=== PATIENT | female | born 1965 | race Caucasian/White ===

== ENCOUNTER 2024-09-27 10:57 | Outpatient (CLI) | payer BC, SELFPAY ==
--- NOTE | 2024-09-27 11:05 | XR_ITS ---
FINAL REPORT CLINICAL HISTORY: RIGHT SHOULDER PAIN COMPARISON: None FINDINGS: LEFT SHOULDER 3 views of the left shoulder were obtained. There is no acute fracture or dislocation. Visualized joint spaces are normally aligned. Soft tissues are unremarkable. IMPRESSION: No acute bony abnormality. Reviewed, Interpreted and Dictated by Jean Carlos Booker MD Transcribed by Luda Smith Authenticated and [facility]
== END 2024-09-27 23:59 | disposition home or self-care (01) ==
LOC: RAD 11:01
PROVIDERS: PCP Family Medicine; Visit Provider Family Medicine
DX: M25.511 Pain in right shoulder (principal); S49.91XA Unspecified injury of right shoulder and upper arm, initial encounter
CPT/HCPCS: 73030

== ENCOUNTER 2025-06-26 15:18 | Outpatient (CLI) | payer BC, SELFPAY ==
--- OUTSIDE RECORDS SUMMARY | 2025-06-06 14:45 | XMS_ITS | Encounter Summary ---
Author Organization [facility] yste Address [address] [place] [address] Care Team Providers Care Transmitter Engineer In Charge Name Role Phone Juan Luis Earl MD Primary Care Provider [phone] Reason for Visit * Reason Comments Coronary artery disease involving [place] coronary artery of 1 yr f/u------- Encounter Details Date Type Department Care Team (Late st Contact Info) Description 06/06/2025 2:45 PM EDT Office Visit [facility] [address] [facility] [address] [place] [address] Mine Daily MD [address] [facility] [address] [place] [address] Coronary artery disease involving [place] coronary artery of [place] heart without angina pectoris (Primary Dx); Hyperlipidemia LDL goal <70; Primary hypertension Social History Tobacco Use Types Packs/Day Years Used Date Smoking Tobacco: Former Cigarettes 0.5 15 0 12/23/2001 - 12/23/2016 Passive Smoke Exposure: Past Smokeless Tobacco: Never Alcohol Use Standard Drinks/Week Comments Yes 1 (1 standard drink = 0.6 oz pur e alcohol) occas Comments No Sex and Gender Information Value Date Recorded Sex Assigned at Not on file Legal Sex Female 12:48 PM EDT Gender Identity Not on file Sexual Orientation Not on file documented as of this encounter Last Filed Vital Signs Vital Sign Reading Time Taken Comments Blood Pressure 122/88 06/06/2025 2:52 PM EDT Pulse 87 06/06/2025 2:52 PM EDT Temperature - - Respiratory Rate - - Oxygen Saturation 97% 06/06/2025 2:52 PM EDT Inhaled Oxygen Concentration - - Weight 95.3 kg (210 lb 3.2 oz) 06/06/2025 2:52 P M EDT Height 167.6 cm (5' 6 ) 06/06/2025 2:52 PM EDT Body Mass Index 33.93 06/06/2025 2:52 PM EDT documented in this encounter Progress Notes * Mine Daily MD - 06/06/2025 2:45 PM EDTAssociated Order(s): ECG 12 Lead Post-Procedure Diagnose(s): Hyperlipidemia LDL goal <70; Coronary artery disease involving [place] coronary artery of [place] heart without angina pectoris [facility] Patient ID: Rosa Maria George is a 60 y.o. female. : 1965 Contact: Encounter date: 06/06/2025 PCP: Juan Luis Earl MD Chief complaint: Chief Complaint Patient presents with Coronary artery disease involving [place] coronary artery of 1 yr f/u------- Problem List: Coronary artery disease: NSTEMI/LHC, 12/08/2014, PWH: 99% mid RCA thrombus s/p 3.0 x 28 mm Xience CEFERINO post dilated with a 3.5 mm diameter balloon. EF 45-50%. Echo, 01/23/2015: EF 50-55% with minimal inferior hypokinesis. Dyslipidemia. History of tobacco abuse, cessation in November 2016. Mild obesity. History of nephrolithiasis. History of diverticulosis. Surgical history: Cholecystectomy. Total abdominal hysterectomy. section. Lithotripsy. Umbilical hernia repair No Known Allergies Current Medications: Current Outpatient Medications: aspirin 81 MG EC tablet, Take 1 tablet by mouth Every Night., Disp: , Rfl: atorvastatin (LIPITOR) 80 MG tablet, Take 1 tablet by mouth Daily., Disp: 90 tablet, Rfl: 3 carvedilol (COREG) 3.125 MG tablet, Take 1 tablet by mouth Daily., Disp: 90 tablet, Rfl: 3 nitroglycerin (NITROSTAT) 0.4 MG SL tablet, Place 1 tablet under the tongue Every 5 (Five) Minutes As Needed for Chest Pain. Take no more than 3 doses in 15 minutes., Disp: 25 tablet, Rfl: 3 HPI Rosa Maria George is a 60 y.o. female who presents today for a follow up of CAD and cardiac risk factors. Since last visit, patient has been doing well overall from a cardiovascular standpoint. Shehas started swimming to stay physically active. Patient denies chest pain, shortness of breath, orthopnea, palpitations, dizziness, and syncope. The following portions of the patient's history were reviewed and updated as appropriate: allergies, current medications and problem list. Pertinent positives as listed in the HPI. All other systems reviewed are negative. Vitals: 06/06/25 1452 BP: 122/88 BP Location: Left arm Patient Position: Sitting Cuff Size: Adult Pulse: 87 SpO2: 97% Weight: 95.3 kg (210 lb 3.2 oz) Height: 167.6 cm (66 ) Physical Exam: General: Alert and oriented. Neck: Jugular venous pressure is within normal limits. Carotids have normal upstrokes without bruits. Cardiovascular: Heart has a nondisplaced focal PMI. Regular rate and rhythm. No murmur, gallop or rub. Lungs: Clear, no rales or wheezes. Equal expansion is noted. Extremities: Show no edema. Skin: Warm and dry. Neurologic: Nonfocal. Diagnostic Data (reviewed with patient): No recent laboratory studies available for review today. Advance Care Planning ACP discussion was held with the patient during this visit. Patient does not have an advance directive, declines further assistance. ECG 12 Lead Date/Time: 06/06/2025 3:04 PM Performed by: Mine Daily MD Authorized by: Mine Daily MD Comparison: compared with previous ECG from 05/31/2024 Rhythm: sinus rhythm BPM: 87 Clinical impression: abnormal EKG Comments: Inferior infarct, age undetermined. Assessment: ICD-10-CM ICD-9-CM 1. Coronary artery disease involving [place] coronary artery of [place] heart without angina [id number] 414.01 2. Hyperlipidemia LDL goal <70 E78.5 272.4 3. Primary hypertension I10 401.9 Plan: Continue swimming for exercise CMP and FLP ordered to be done today. Continue on aspirin 81 mg for antiplatelet therapy. Continue on atorvastatin 80 mg daily for hyperlipidemia. Continue on carvedilol 3.125 mg QD for hypertension. Continue all other current medications. F/up in 12 months, sooner if needed. Scribed for Mine Daily MD by Janine Sherman. 06/06/2025 15:01 EDT I Mine Daily MD personally performed the services described in this documentation as scribed by the above individual in my presence, and it is both accurate and complete. Mine Daily MD, FACC documented in this encounter Plan of Treatment Upcoming Encounters Date Type Department Care Team (Late st Contact Info) Description 07/10/2026 4:00 PM EDT Office Visit [facility] [address] [facility] [address] [place] [address] Mine Daily MD [address] [facility] [address] [place] [address] documented as of this encounter Procedures Procedure Name Priority Date/Time Associated Diagnosis Comments LIPID PANEL Routine 06/06/2025 3:19 PM EDT Coronary artery disease involving [place] coronary artery of [place] heart without angina pectoris Hyperlipidemia LDL goal <70 COMPREHENSIVE METABOLIC PANEL Routine 06/06/2025 3:19 PM EDT Coronary artery disease involving [place] coronary artery of [place] heart without angina pectoris Hyperlipidemia LDL goal <70 ECG 12-LEAD Routine 06/06/2025 Coronary artery disease involving [place] coronary artery of [place] heart without angina pectoris Hyperlipidemia LDL goal <70 documented in this encounter Results * (ABNORMAL) Comprehensive Metabolic Panel (06/06/2025 3:19 PM EDT) Glucose 137(H) 65 - 99 mg/dL 06/06/2025 11:49 PM EDT [facility] BUN 16.0 8.0 - 23.0 mg/dL 06/06/2025 11:49 PM [facility] Creatinine 0.80 0.57 - 1.00 mg/dL 06/06/2025 11:49 PM [facility] Sodium 141 136 - 145 mmol/L 06/06/2025 11:49 PM [facility] Potassium 4.6 3.5 - 5.2 mmol/L 06/06/2025 11:49 PM [facility] Chloride 106 98 - 107 mmol/L 06/06/2025 11:49 PM [facility] CO2 24.0 22.0 - 29.0 mmol/L 06/06/2025 11:49 PM [facility] Calcium 9.9 8.6 - 10.5 mg/dL 06/06/2025 11:49 PM [facility] Total Protein 7.5 6.0 - 8.5 g/dL 06/06/2025 11:49 PM [facility] Albumin 4.3 3.5 - 5.2 g/dL 06/06/2025 11:49 PM [facility] ALT (SGPT) 25 1 - 33 U/L 06/06/2025 11:49 PM [facility] AST (SGOT) 19 1 - 32 U/L 06/06/2025 11:49 PM [facility] Alkaline Phosphatase 92 39 - 117 U/L 06/06/2025 11:49 PM [facility] Total Bilirubin 0.4 0.0 - 1.2 mg/dL 06/06/2025 11:49 PM [facility] Globulin 3.2 gm/dL 06/06/2025 11:49 PM [facility] A/G Ratio 1.3 g/dL 06/06/2025 11:49 PM [facility] BUN/Creatinine Ratio 20.0 7.0 - 25.0 06/06/2025 11:49 PM [facility] Anion Gap 11.0 5.0 - 15.0 mmol/L 06/06/2025 11:49 PM EDT [facility] eGFR 83.9 >60.0 mL/min/1.7 3 06/06/2025 11:49 PM EDT [facility] Blood Venipuncture / Unknown 06/06/2025 3:19 PM EDT 06/06/2025 3:19 PM EDT Narrative [facility] - 06/06/2025 11:49 PM EDT GFR Categories in Chronic Kidney Disease (CKD) GFR Category GFR (mL/min/1.73) Interpretation G1 90 or greater Normal or high (1) G2 60-89 Mild decrease (1) G3a 45-59 Mild to moderate decrease G3b 30-44 Moderate to severe decrease G4 15-29 Severe decrease G5 14 or less Kidney failure (1)In the absence of evidence of kidney disease, neither GFR category G1 or G2 fulfill the criteria for CKD. eGFR calculation 2020 CKD-EPI creatinine equation, which does not include race as a factor Mine Daily MD LAB BLOOD ORDERABLES nal Result [facility]
[address] [place] [address], * Lipid Panel (06/06/2025 3:19 PM EDT) Total Cholesterol 141 0 - 200 mg/dL 06/06/2025 11:49 PM EDT [facility] Triglycerides 138 0 - 150 mg/dL 06/06/2025 11:49 PM EDT [facility] HDL Cholesterol 43 40 - 60 mg/dL 06/06/2025 11:49 PM EDT [facility] LDL Cholesterol 74 0 - 100 mg/dL 06/06/2025 11:49 PM EDT [facility] VLDL Cholesterol 24 5 - 40 mg/dL 06/06/2025 11:49 PM EDT [facility] LDL/HDL Ratio 1.64 06/06/2025 11:49 PM EDT [facility] Blood Venipuncture / Unknown 06/06/2025 3:19 PM EDT 06/06/2025 3:19 PM EDT Narrative [facility] - 06/06/2025 11:49 PM EDT Cholesterol Reference Ranges (U.S. Department of Health and Human Services ATP III Classifications) Desirable <200 mg/dL Borderline High 200-239 mg/dL High Risk >240 mg/dL Triglyceride Reference Ranges (U.S. Department of Health and Human Services ATP III Classifications) Normal <150 mg/dL Borderline High 150-199 mg/dL High 200-499 mg/dL Very High >500 mg/dL HDL Reference Ranges (U.S. Department of Health and Human Services ATP III Classifications) Low <40 mg/dl (major risk factor for CHD) High >60 mg/dl ('negative' risk factor for CHD) LDL Reference Ranges (U.S. Department of Health and Human Services ATP III Classifications) Optimal <100 mg/dL Near Optimal 100-129 mg/dL Borderline High 130-159 mg/dL High 160-189 mg/dL Very High >189 mg/dL LDL is calculated using the NIH LDL-C calculation. Mine Daily MD LAB BLOOD ORDERABLES Fi nal Result [facility]
[address] [place] [address], * ECG 12-LEAD (06/06/2025) Narrative 06/06/2025 Mine Daily MD 06/06/2025 3:24 PM ECG 12 Lead Date/Time: 06/06/2025 3:04 PM Performed by: Mine Daily MD Authorized by: Mine Daily MD Comparison: compared with previous ECG from 05/31/2024 Rhythm: sinus rhythm BPM: 87 Clinical impression: abnormal EKG Comments: Inferior infarct, age undetermined. Procedure Note Mine Daily MD - 06/06/2025 2:45 PM EDT [facility] Patient ID: Rosa Maria George is a 60 y.o. female. : 1965 Contact: Encounter date: 06/06/2025 PCP: Juan Luis Earl MD Chief complaint: Chief Complaint Patient presents with Coronary artery disease involving [place] coronary artery of 1 yr f/u------- Problem List: Coronary artery disease: NSTEMI/LHC, 12/08/2014, PWH: 99% mid RCA thrombus s/p 3.0 x 28 mm XienceDES post dilated with a 3.5 mm diameter balloon. EF 45-50%. Echo, 01/23/2015: EF 50-55% with minimal inferior hypokinesis. Dyslipidemia. History of tobacco abuse, cessation in November 2016. Mild obesity. History of nephrolithiasis. History of diverticulosis. Surgical history: Cholecystectomy. Total abdominal hysterectomy. section. Lithotripsy. Umbilical hernia repair No Known Allergies Current Medications: Current Outpatient Medications: aspirin 81 MG EC tablet, Take 1 tablet by mouth Every Night., Disp: ,Rfl: atorvastatin (LIPITOR) 80 MG tablet, Take 1 tablet by mouth Daily.,Disp: 90 tablet, Rfl: 3 carvedilol (COREG) 3.125 MG tablet, Take 1 tablet by mouth Daily., Disp:90 tablet, Rfl: 3 nitroglycerin (NITROSTAT) 0.4 MG SL tablet, Place 1 tablet under thetongue Every 5 (Five) Minutes As Needed for Chest Pain. Take no more than3 doses in 15 minutes., Disp: 25 tablet, Rfl: 3 HPI Rosa Maria George is a 60 y.o. female who presents today for a follow upof CAD and cardiac risk factors. Since last visit, patient has been doingwell overall from a cardiovascular standpoint. She has started swimming tostay physically active. Patient denies chest pain, shortness of breath,orthopnea, palpitations, dizziness, and syncope. The following portions of the patient's history were reviewed and updatedas appropriate: allergies, current medications and problem list. Pertinent positives as listed in the HPI. All other systems reviewed arenegative. Vitals: 06/06/25 1452 BP: 122/88 BP Location: Left arm Patient Position: Sitting Cuff Size: Adult Pulse: 87 SpO2: 97% Weight: 95.3 kg (210 lb 3.2 oz) Height: 167.6 cm (66 ) Physical Exam: General: Alert and oriented. Neck: Jugular venous pressure is within normal limits. Carotids havenormal upstrokes without bruits. Cardiovascular: Heart has a nondisplaced focal PMI. Regular rate andrhythm. No murmur, gallop or rub. Lungs: Clear, no rales or wheezes. Equal expansion is noted. Extremities: Show no edema. Skin: Warm and dry. Neurologic: Nonfocal. Diagnostic Data (reviewed with patient): No recent laboratory studies available for review today. Advance Care Planning ACP discussion was held with the patient during this visit. Patient doesnot have an advance directive, declines further assistance. ECG 12 Lead Date/Time: 06/06/2025 3:04 PM Performed by: Mine Daily MD Authorized by: Mine Daily MD Comparison: compared withprevious ECG from 05/31/2024 Rhythm: sinus rhythm BPM: 87 Clinical impression: abnormal EKG Comments: Inferior infarct, age undetermined. Assessment: ICD-10-CM ICD-9-CM 1. Coronary artery disease involving [place] coronary artery of [place] without angina pectoris I25.10 414.01 2. Hyperlipidemia LDL goal <70 E78.5 272.4 3. Primary hypertension I10 401.9 Plan: Continue swimming for exercise CMP and FLP ordered to be done today. Continue on aspirin 81 mg for antiplatelet therapy. Continue on atorvastatin 80 mg daily for hyperlipidemia. Continue on carvedilol 3.125 mg QD for hypertension. Continue all other current medications. F/up in 12 months, sooner if needed. Scribed for Mine Daily MD by Janine Sherman. 06/06/2025 15:01EDT I Mine Daily MD personally performed the services described inthis documentation as scribed by the above individual in my presence, andit is both accurate and complete. Mine Daily MD, [facility] Mine Daiyl MD ECG ORDERABLES Final R esult documented in this encounter Visit Diagnoses Diagnosis Coronary artery disease involving [place] coronary artery of [place] heart without angina pectoris- Primary Hyperlipidemia LDL goal <70 Other and unspecified hyperlipidemia Primary hypertension Unspecified essential hypertension documented in this encounter Additional Health Concerns Infection Onset Date Last Indicated Resolved Time CRE 09/27/2020 09/27/2020 documented as of this encounter Care Teams Transmitter Engineer In Charge Relationship Specialty Start Date End Date Juan Luis Earl MD [address] [place] [id number] PCP - General 06/20/15 documented as of this encounter
--- OUTSIDE RECORDS SUMMARY | 2025-06-06 15:25 | XMS_ITS | Encounter Summary ---
[facility] [address] [place] [address] Care Team Providers Care Purchasing Internship Name Role Phone Juan Luis Earl MD Primary Care Provider [phone] Encounter Details Date Type Department Care Team (Late st Contact Info) Description 06/06/2025 3:25 PM EDT Lab [facility] [address] [place] [id number] Social History Tobacco Use Types Packs/Day Years [...] on file documented as of this encounter Plan of Treatment Upcoming Encounters Date Type Department Care Team (Late st Contact Info) Description 07/10/2026 4:00 PM EDT Office Visit [facility] [address] [facility] [address] [place] [address] Mine Daily MD [address] [facility] [address] [place] [address] documented as of this encounter Visit Diagnoses Not on filedocumented in this encounter Additional Health Concerns Infection Onset Date Last Indicated Resolved Time CRE 09/27/2020 09/27/2020 documented as of this encounter Care Teams Purchasing Internship Relationship Specialty Start Date End Date Juan Luis Earl MD [address] [place] [address] PCP - General 06/20/15 documented as of this encounter
--- OUTSIDE RECORDS SUMMARY | 2025-06-26 15:21 | XMS_ITS | Clinical Summary ---
Author Organization [facility] Address [address] [place] [address] Phone Care Team Providers Care Scale Manager Name Role Phone Tiana Jj Unavailable Unavailable Conditions or Problems Problem Name Problem Code Onset Date Status Entry Date Provider Comment Standard Description Annotate Presence of ureteral stent 572459477 (SNOMED CT) 12/10 Active 12/11 Karla W Device in situ Calculus, kidney 87177443 (SNOMED CT) 12/10 Active 12/11 W Kidney stone Acute Pyelonephriti s 09142934 (SNOMED CT) 12/10 Active 12/11 Karla W Acute pyelonephritis ELEVATED LFT'S 854434406 (SNOMED CT) 12/10 Active 12/10 Karla W Liver function tests outside reference range Elevated LFT's 092236982 (SNOMED CT) 12/10 Inactive 12/10 Pranav Cruz MD. Liver function tests outside reference range Obstructive uropathy with infection N13.6 (ICD-10-CM ) 12/09 Active 12/09 Diana Patrick Pyonephrosis UTI N39.0 (ICD-10-CM ) 11/30 Active 11/30 W Urinary tract infection, site not specified E. coli infection B96.29 (ICD-10-CM ) 11/30 Active 11/30 W Other Escherichia coli [E. coli] as the cause of diseases classified elsewhere CRE 840170020 (SNOMED CT) 11/30 Active 11/30 Infection caused by antimicrobial resistant bacteria Medications Medication Instructions Start Date Stop Date Generic Name NDC Provider NITROGLYCERIN 0.4 MG SUBL 0.4 mg, Sublingual, Every 5 Minutes PRN, Take no more than 3 doses in 15 minutes. NITROGLYCERIN [id number] Jeane Angulo ADULT ASPIRIN REGIMEN 81 MG ORAL TABLET DELAYED RELEASE Take one by mouth daily ASPIRIN 24751884966 Jeane Angulo CARVEDILOL 3.125 MG TABS Take by mouth twice a day CARVEDILOL 35422695135 Jeane Angulo ATORVASTATIN CALCIUM 40 MG TABS Take one by mouth daily ATORVASTATIN CALCIUM 86397394011 Jeane Angulo MERREM 1 GM INTRAVENOUS SOLUTION RECONSTITUTED Merrem 1GM IV Q8hrs - OPAT MEROPENEM [id number] Chelsey Conway Medications Administered No information available. Allergies, Adverse Reactions, Alerts No information available. Results Date Name Value Unit Range Flag Description Office Visit: Rm 4 DIET SOUND ENGINEERING TECHNICIAN yes Dietary management education, guidance, and counseling (procedure) ORALTOBACUSE Never Tobacco smoking status SMOK STATUS Former smoker Tobacco smoking status Lab Report: CBC WITH AUTO DI FFERENTIAL ZZ-GE-unk 0.0 /100 WBC 0.0-0.2 GE use only - fo r [employer] import when terms are not otherwise specified IMMATUREGRAN 0.06 10*3/MM3 0.00-0.05 H Immature granulocytes [#/volume] in Blood BASO# 0.17 10*3/mm3 0.00-0.20 Basophils [#/vol ume] in Blood EOS ABSLT 1.07 10*3/uL 0.00-0.40 H Eosinophi ls [#/volume] in Blood MONOSCT AUTO 0.66 10*3/uL 0.10-0.90 Monocy etienne [#/volume] in Blood by Automated count LYMPHCT AUTO 2.31 10*3/mm3 0.70-3.10 Lymph ocytes [#/volume] in Blood by Automated count ABS NEUTROPH 8.79 10*3/uL 1.70-7.00 H Neutro phils [#/volume] in Blood IMM GRANU % 0.5 % 0.0-0.5 Immature granulocytes/100 leukocytes in Blood % EOS AUTO 8.2 % 0.3-6.2 H Eosinophil s/100 leukocytes in Blood by Automated count MONOCYTE % 5.1 % 5.0-12.0 Monocytes /100 leukocytes in Blood by Automated count LYMPHOCY BF 17.7 % 19.6-45.3 L lymphoc ytes as percent of body fluid leukocytes NEUTROP BF 67.2 % 42.7-76.0 Neutroph ils/100 leukocytes in Body fluid PLATELETS 329 10*3/mm3 140-450 Platelets [#/volume] in Blood by Automated count RDW_ 12.0 12.3-15.4 L RDW, no uni ts MCHC 32.0 G/DL 31.5-35.7 MCHC [Mass/ volume] by Automated count MCH 32.2 pg 26.6-33.0 MCH [Entiti c mass] by Automated count MCV 100.6 fL 79.0-97.0 H MCV [Entiti c volume] by Automated count HCT 46.9 % 34.0-46.6 H Hematocrit [Volume Fraction] of Blood by Automated count HGB 15.0 g/dL 12.0-15.9 Hemoglobin [Mass/volume] in Blood RBC 4.66 10*6/mm3 3.77-5.28 Erythrocyt es [#/volume] in Blood by Automated count WBC 13.06 10*3/mm3 3.40-10.8 0 H Leukocytes [#/volume] in Blood by Automated count Lab Report: SEDIMENTATION RA TE ESR 21 mm/h 0-30 Erythrocyte sedimentation rate by Westergren method Lab Report: COMPREHENSIVE GA TABOLIC PANEL ANIONGAP 7.0 mmol/L 5.0-15.0 anion gap, serum BUN/CREAT 20.3 7.0-25.0 Urea nitrogen/Creatinine [Mass Ratio] in Serum or Plasma GFRC 81 mL/min/1. 73m2 >60 Glomerular Filtration Rate Calculation BILI TOTAL 0.8 mg/dL 0.0-1.2 Bilirubin. total [Mass/volume] in Serum or Plasma ALK PHOS 99 U/L 39-117 Alkaline ita sphatase [Enzymatic activity/volume] in Blood SGOT (AST) 16 U/L 1-32 Aspartate aminotransferase [Enzymatic activity/volume] in Serum or Plasma SGPT (ALT) 22 U/L 1-33 Alanine aminotransferase [Enzymatic activity/volume] in Serum or Plasma ALBUMIN 4.00 g/dL 3.50-5.20 Albumin [Mass/volume] in Serum or Plasma PROTEIN, TOT 7.7 g/dL 6.0-8.5 Protein [Mass/volume] in Serum or Plasma CALCIUM 9.8 mg/dL 8.6-10.5 Calcium [Moles/volume] in Serum or Plasma CO2 31.0 mmol/L 22.0-29.0 H Carbon diox shan, total [Moles/volume] in Venous blood CHLORIDE 105 mmol/L 98-107 Chloride [Moles/volume] in Serum or Plasma POTASSIUM 4.8 mmol/L 3.5-5.2 Potassium [Moles/volume] in Serum or Plasma SODIUM 143 mmol/L 136-145 Sodium [Moles/volume] in Serum or Plasma CREATININE 0.74 mg/dL 0.57-1.00 Creatini ne [Mass/volume] in Serum or Plasma BUN 15 mg/dL 6-20 Urea nitrogen [Mass/volume] in Serum or Plasma GLUCOSE SER 98 mg/dL 65-99 Glucose [Mass/volume] in Serum or Plasma Lab Report: C-REACTIVE PROTE IN CRP 1.54 mg/dL 0.00-0.50 H C reactive protein [Mass/volume] in Serum or Plasma Clinical Lists Update: LOU MEDS REVIEW Done Documenta tion of current medications (procedure) Plan of Care Type Date Detail Pending order Continue IV anti biotics Pending order Weekly PICC Line Care Pending order PICC Line Insert ion Pending order Meropenem Pending order STAT Labs Patient education Meropenem%20(I njection)%20(Injectable) Patient education Meropenem%20(I njection)%20(Injectable) Patient education Meropenem%20(I njection)%20(Injectable) Patient education Meropenem%20(I njection)%20(Injectable) Procedures Code Procedure Name Date Entry Date CPT-ca Continue IV antibiotics 2019 CPT-wpc Weekly PICC Line Care 12/17 CPT-17441 PICC Line Insertion [id number] Meropenem CPT-sl STAT Labs Vital Signs Date Name Value Unit Description BMI (Body Mass Index) 29.05 kg/m2 Bod y Mass Index (Ratio) Body Temperature 98.0 [degF] temperat ure E&M BP Diastolic 60 mm[Hg] blood pressu re, diastolic BP Systolic 120 mm[Hg] blood pressur e, systolic Heart Rate 76 /min pulse rate Respiratory Rate 14 /min respirat ory rate E&M Weight Measured 180 [lb_av] weight E& M Weight Measured 180 [lb_av] weight E& M Height 66 [in_us] height E&M Immunizations No information available. Advance Directives Directive Description Start Date LIVING WILL ON FILE
--- OUTSIDE RECORDS SUMMARY | 2025-06-26 15:22 | XMS_ITS | Encounter Summary ---
Author Organization [facility] Address [address] [place] [address] Care Team Providers Care Party Host Name Role Phone Juan Luis Earl MD Primary Care Provider [phone] Encounter Details Date Type Department Care Team (Late st Contact Info) Description 06/09/2025 Results Follow-Up [facility] [address] [facility] [address] [address] [place] [address] Mine Daily MD [address] [facility] [address] [place] [address] Social History Tobacco Use Types Packs/Day Years [...] on file documented as of this encounter Miscellaneous Notes * Telephone Encounter - Veronica Odell RN - 06/11/2025 11:28 AM EDT Per [facility] - LDL down from 162 to 74. Goal < 55. Add Zetia. FLP/LFT 3 mo. Spoke with patient. She is instructed of above and verbalizes understanding. documented in this encounter Plan of Treatment Upcoming Encounters Date Type Department Care Team (Late st Contact Info) Description 07/10/2026 4:00 PM EDT Office Visit [facility] [address] [facility] [address] [place] [address] Mine Daily MD [address] [place] [address] Scheduled Orders Name Type Priority Associated Diagnoses Orde r Schedule Lipid Panel Lab Routine Coronary artery disease involving [place] coronary artery of [place] heart without angina pectoris Hyperlipidemia LDL goal <70 Expected: 09/10/2025 (Approximate), Expires: 09/11/2026 Hepatic Function Panel Lab Routine Coronary artery disease involving [place] coronary artery of [place] heart without angina pectoris Hyperlipidemia LDL goal <70 Expected: 09/10/2025 (Approximate), Expires: 09/11/2026 documented as of this encounter Visit Diagnoses Diagnosis Coronary artery disease involving [place] coronary artery of [place] heart without angina pectoris- Primary Hyperlipidemia LDL goal <70 Other and unspecified hyperlipidemia documented in this encounter Additional Health Concerns Infection Onset Date Last Indicated Resolved Time CRE 09/27/2020 09/27/2020 documented as of this encounter Care Teams Party Host Relationship Specialty Start Date End Date Juan Luis Earl MD [address] [place] [address] PCP - General 06/20/15 documented as of this encounter
--- OUTSIDE RECORDS SUMMARY | 2025-06-26 15:22 | XMS_ITS | Clinical Summary ---
Author Organization [facility] [email or web address] [facility] Address [address] [place] [address] Care Team Providers Care Fire Prevention Bureau Captain Name Role Phone Juan Luis Earl MD Primary Care Provider [phone] Allergies No known active allergies Medications aspirin 81 MG EC tablet Take 1 tablet by mouth Every Night. Active atorvastatin (LIPITOR) 80 MG tablet Take 1 tablet by mouth Daily. 90 tablet 3 5 Active nitroglycerin (NITROSTAT) 0.4 MG SL tabletIndicatio ns:Coronary artery disease involving [place] coronary artery of [place] heart without angina pectoris Place 1 tablet under the tongue Every 5 (Five) Minutes As Needed for Chest Pain. Take no more than 3 doses in 15 minutes. 30 tablet 1 5 Active carvedilol (COREG) 3.125 MG tabletIndicatio ns:Coronary artery disease involving [place] coronary artery of [place] heart without angina pectoris Take 1 tablet by mouth Daily. 90 tablet 3 5 Active ezetimibe (ZETIA) 10 MG tabletIndicatio ns:Coronary artery disease involving [place] coronary artery of [place] heart without angina pectoris,Hyperl ipidemia LDL goal <70 Take 1 tablet by mouth Daily. 30 tablet 11 5 Active atorvastatin (LIPITOR) 80 MG tablet Take 1 tablet by mouth Daily. 90 tablet 3 4 06/06/20 25 Discontinu ed(Reorder ) nitroglycerin (NITROSTAT) 0.4 MG SL tabletIndicatio ns:Coronary artery disease involving [place] coronary artery of [place] heart without angina pectoris Place 1 tablet under the tongue Every 5 (Five) Minutes As Needed for Chest Pain. Take no more than 3 doses in 15 minutes. 25 tablet 3 4 06/06/20 25 Discontinu ed(Reorder ) carvedilol (COREG) 3.125 MG tabletIndicatio ns:Coronary artery disease involving [place] coronary artery of [place] heart without angina pectoris Take 1 tablet by mouth Daily. 90 tablet 3 5 06/06/20 25 Discontinu ed(Reorder ) Active Problems Problem Noted Date Diagnosed Date Primary hypertension 06/04/2025 Kidney stone 09/30/2020 Obstructive uropathy 09/27/2020 UTI (urinary tract infection), bacterial 020 Dyspnea 11/03/2017 Coronary artery disease invo lving [place] coronary artery of [place] heart without angina pectoris Overview (01/12/2017): a. Qnv-MQ-pmzkzgwzh myocardial infarction, 12/08/2014. b. Cardiac catheterization, 12/08/2014, Mine Daily MD, revealing a 99% mid RCA thrombus. c. Status post 3.0 x 28 mm Xience drug-eluting stent post dilated with a 3.5 mm diameter balloon, LVEF of 45% to 50%. d. Limited echocardiogram for EF 01/23/2015: LVEF 50% to 55% with minimal inferior hypokinesis. e. Currently asymptomatic Hyperlipidemia LDL goal <70 Overview (01/12/2017): Under fairly good control on Lipitor at the current dose Tobacco abuse Overview (01/12/2017): Ongoing Obesity Overview (01/12/2017): Mild Diverticulosis Overview (01/12/2017): h/o Encounters Date Type Department Care Team Description 06/09/2025 Results Follow-Up [facility] [address] [facility] [address] [place] [address] Mine Daily MD 06/06/2025 3:25 PM EDT Lab [facility] [address] [place] [id number] 06/06/2025 2:45 PM EDT Office Visit [facility] [address] [facility] [address] [place] [address] Mine Daily MD Coronary artery disease involving [place] coronary artery of [place] heart without angina pectoris (Primary Dx); Hyperlipidemia LDL goal <70; Primary hypertension 06/06/2025 Travel from Last 3 Months Family History Medical History Relation Name Comments Heart attack Father Kartik Crow Sr. Cancer Mother Relation Name Status Comments Father Kartik Crow Sr. Mother Social History Tobacco Use Types Packs/Day Years [...] on file Sexual Orientation Not on file Last Filed Vital Signs Vital Sign Reading Time Taken Comments Blood Pressure 122/88 06/06/2025 2:52 PM EDT Pulse 87 06/06/2025 2:52 PM EDT Temperature 35.7 C (96.2 F) 10/10/2020 1:40 PM EST Respiratory Rate 12 10/10/2020 1:40 PM EST Oxygen Saturation 97% 06/06/2025 2:52 PM EDT Inhaled Oxygen Concentration - - Weight 95.3 kg (210 lb 3.2 oz) 06/06/2025 2:52 P M EDT Height 167.6 cm (5' 6 ) 06/06/2025 2:52 PM EDT Body Mass Index 33.93 06/06/2025 2:52 PM EDT Plan of Treatment Upcoming Encounters Date Type Department Care Team (Late st Contact Info) Description 07/10/2026 4:00 PM EDT Office Visit [facility] [address] [facility] [address] [place] [address] Mine Daily MD [address] [facility] [address] [place] [address] Health Maintenance Due Date Last Done Comments Annual Gynecologic Pelvic an d Breast Exam 1965 TDAP/TD VACCINES (1 - Tdap) 1983 MAMMOGRAM 2004 COLOGUARD 2009 COLON CANCER SCREENING 5 YEA R SIGMOIDOSCOPY 2009 COLONOSCOPY [address] CANCER SCREENING [address] COLONOGRAPHY 2009 FECAL OCCULT BLOOD TEST 2009 FIT Testing (1 year) 2009 Pneumococcal Vaccine 50+ (1 of 1 - PCV) 2014 ZOSTER VACCINE (1 of 2) 2014 ANNUAL PHYSICAL 03/17/2017 HEPATITIS C SCREENING 03/17/2017 COVID-19 Vaccine (1 - 2023-2 5 season) 2024 INFLUENZA VACCINE 08/08/2025 LIPID PANEL 06/06/2026 06/06/2025, 05/08, 04/16/2021, Additional history exists Medical Devices Implanted Type Area Coping Machine Assembler Device Identifier Shelf Expiration Date Model / Serial / Lot Stnt Uretrl Contour Percuflx No Gw 6f 26cm - [id number] Implanted:Qty: 1 on 09/27/2020 by Marc Arellano MD at [facility] Stent [employer] 12/15/2020 [id number] / / [id number] Procedures Procedure Name Priority Date/Time Associated Diagnosis Comments COMPREHENSIVE METABOLIC PANEL Routine 06/06/2025 3:19 PM EDT Coronary artery disease involving [place] coronary artery of [place] heart without angina pectoris Hyperlipidemia LDL goal <70 LIPID PANEL Routine 06/06/2025 3:19 PM EDT Coronary artery disease involving [place] coronary artery of [place] heart without angina pectoris Hyperlipidemia LDL goal <70 ECG 12-LEAD Routine 06/06/2025 Coronary artery disease involving [place] coronary artery of [place] heart without angina pectoris Hyperlipidemia LDL goal <70 from Last 3 Months Results * Lipid Panel (06/06/2025 3:19 PM EDT) Total Cholesterol 141 0 - 200 mg/dL 06/06/2025 11:49 PM EDT [facility] Triglycerides 138 0 - 150 mg/dL 06/06/2025 11:49 PM EDT [facility] HDL Cholesterol 43 40 - 60 mg/dL 06/06/2025 11:49 PM EDT [facility] LDL Cholesterol 74 0 - 100 mg/dL 06/06/2025 11:49 PM EDT [facility] VLDL Cholesterol 24 5 - 40 mg/dL 06/06/2025 11:49 PM EDT [facility] LDL/HDL Ratio 1.64 06/06/2025 11:49 PM EDT [facility] Blood Venipuncture / Unknown 06/06/2025 3:19 PM EDT 06/06/2025 3:19 PM EDT Narrative [facility] - 06/06/2025 11:49 PM EDT [...] MD LAB BLOOD ORDERABLES Fi nal Result [facility]
[address] [place] [address], [place] [phone] * (ABNORMAL) Comprehensive Metabolic Panel (06/06/2025 3:19 PM EDT) Glucose 137(H) 65 - 99 mg/dL 06/06/2025 11:49 PM EDT [facility] BUN 16.0 8.0 - 23.0 mg/dL 06/06/2025 11:49 PM EDT [facility] Creatinine 0.80 0.57 - 1.00 mg/dL 06/06/2025 11:49 PM EDT [facility] Sodium 141 136 - 145 mmol/L 06/06/2025 11:49 PM EDT [facility] Potassium 4.6 3.5 - 5.2 mmol/L 06/06/2025 11:49 PM EDT [facility] Chloride 106 98 - 107 mmol/L 06/06/2025 11:49 PM EDT [facility] CO2 24.0 22.0 - 29.0 mmol/L 06/06/2025 11:49 PM EDT [facility] Calcium 9.9 8.6 - 10.5 mg/dL 06/06/2025 11:49 PM EDT [facility] Total Protein 7.5 6.0 - 8.5 g/dL 06/06/2025 11:49 PM EDT [facility] Albumin 4.3 3.5 - 5.2 g/dL 06/06/2025 11:49 PM EDT [facility] ALT (SGPT) 25 1 - 33 U/L 06/06/2025 11:49 PM EDT [facility] AST (SGOT) 19 1 - 32 U/L 06/06/2025 11:49 PM EDT [facility] Alkaline Phosphatase 92 39 - 117 U/L 06/06/2025 11:49 PM EDT [facility] Total Bilirubin 0.4 0.0 - 1.2 mg/dL 06/06/2025 11:49 PM EDT [facility] Globulin 3.2 gm/dL 06/06/2025 11:49 PM EDT [facility] A/G Ratio 1.3 g/dL 06/06/2025 11:49 PM EDT [facility] BUN/Creatinine Ratio 20.0 7.0 - 25.0 06/06/2025 11:49 PM EDT [facility] Anion Gap 11.0 5.0 - 15.0 mmol/L 06/06/2025 11:49 PM EDT [facility] eGFR 83.9 >60.0 mL/min/1.7 3 06/06/2025 11:49 PM EDT [facility] Blood Venipuncture / Unknown 06/06/2025 3:19 PM EDT 06/06/2025 3:19 PM EDT [facility] - 06/06/2025 11:49 PM EDT GFR [...] factor Mine Daily MD LAB BLOOD ORDERABLES Fi nal Result [facility]
[address] [place] [address], * ECG 12-LEAD (06/06/2025) Narrative 06/06/2025 Mine Daily MD 06/06/2025 3:24 PM ECG 12 Lead Date/Time: 06/06/2025 3:04 PM Performed by: Mine Daily MD Authorized by: Mine Daily MD Comparison: compared with previous ECG from 05/31/2024 Rhythm: sinus rhythm BPM: 87 Clinical impression: abnormal EKG Comments: Inferior infarct, age undetermined. Procedure Note Mine Daily MD - 06/06/2025 2:45 PM EDT [facility] Patient ID: Rosa Maria George is a 60 y.o. female. : 1965 Contact: Encounter date: 06/06/2025 PCP: Juan Luis Earl MD Chief complaint: Chief Complaint Patient presents with Coronary artery disease involving [place] coronary artery of 1 yr f/u------- Problem [...] ICD-10-CM ICD-9-CM 1. Coronary artery disease involving [place] coronary artery of nativeheart without angina pectoris [...] accurate and complete. Mine Daily MD, FACC us Mine Daily MD ECG ORDERABLES Final R esult from Last 3 Months Additional Health Concerns Infection Onset Date Last Indicated CRE 09/27/2020 09/27/2020 Insurance [facility] PPO Advance Directives * CPR (Attempt to Resuscitate) (Latest Code Status on File) Date Activated Date Inactivated Comments 09/27/2020 3:22 PM 09/30/2020 6:55 PM Question Answer Comments Code Status (Patient has no pulse and is not breathing): CPR (Attempt to Resuscitate) Medical Interventions (Patie nt has pulse or is breathing): Full Care Teams Fire Prevention Bureau Captain Relationship Specialty Start Date End Date Juan Luis Earl MD [address] [place] [address] PCP - General 06/20/15
--- OUTSIDE RECORDS SUMMARY | 2025-06-26 15:22 | XMS_ITS | Encounter Summary ---
Author Organization [facility] Address [address] [place] [address] Care Team Providers Care Oiler And Greaser Name Role Phone Juan Luis Earl MD Primary Care Provider [phone] Encounter Details Date Type Department Care Team (Latest Contact Info) Description 06/06/2025 Travel Social History Tobacco Use Types Packs/Day Years [...] Description 07/10/2026 4:00 PM EDT Office Visit [facility] [address] [place] [address] Mine Daily MD [address] [place], [place] [id number] documented as of this encounter Visit Diagnoses Not on filedocumented in this encounter Additional Health Concerns Infection Onset Date Last Indicated Resolved Time CRE 09/27/2020 09/27/2020 documented as of this encounter Care Teams Oiler And Greaser Relationship Specialty Start Date End Date Juan Luis Earl MD [address] [place] [address] PCP - General 06/20/15 documented as of this encounter
--- NOTE | 2025-06-26 15:23 | XR_ITS ---
FINAL REPORT CLINICAL HISTORY: LEFT KNEE PAIN COMPARISON: None FINDINGS: LEFT KNEE 3 views of the left knee were obtained. There is no acute fracture or dislocation. Calcific and ossific density medial to the medial femoral condyle is probably due to old trauma. The medial lateral joint spaces are preserved. Soft tissues are unremarkable. IMPRESSION: No acute bony abnormality. Reviewed, Interpreted and Dictated by Jean Carlos Booker MD Transcribed by Luda Smith Authenticated and [facility]
== END 2025-06-26 23:59 | disposition home or self-care (01) ==
LOC: RAD 15:19
PROVIDERS: PCP Family Medicine; Visit Provider Nurse Practitioner Family
DX: M25.562 Pain in left knee (principal)
CPT/HCPCS: 73562